=== PATIENT | male | born 1970 | race Caucasian/White ===

== ENCOUNTER 2019-04-09 09:56 | Emergency (ER) | payer OTHER ==
[2019-04-09 10:29] VITALS: BP 129/84
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
[2019-04-09 14:31] LABS: ABS Basophils 0.1 10^3/ul (0-0.2); ABS Lymphocytes 0.9 10^3/ul (1.0-4.8); ABS Monocytes 0.6 10^3/ul (0-0.8); ABS Neutrophils 3.2 10^3/ul (1.5-7.7); Eosinophil % 0.2 %; Hematocrit 49 % (42-52); Hemoglobin 16.7 g/dL (14.0-18.0); Lymphocyte % 17.9 %; Mean Corpuscular HGB Conc 34 g/dL (31-36); Mean Corpuscular Hemoglobin 31 pg (27-31); Mean Corpuscular Volume 89 fL (80-94); Mean Platelet Volume 9.2 fL (7.4-10.4); Nucleated Red Blood Cells % 0.3; Platelet Count 161 10^3/uL (150-450); Red Blood Count 5.44 10^6 /uL (4.18-5.48); Red Cell Distribution Width 14 % (10-15); White Blood Count 4.8 10^3/uL (3.5-10.8)
[2019-04-09 14:41] LABS: Albumin 4.4 g/dL (3.2-5.2); Albumin/Globulin Ratio 1.7 (1-3); BUN/Creatinine Ratio 14.7 (8-20); EGFR African American 94.3 (>60); Globulin 2.6 g/dL (2-4); Potassium 4.4 mmol/L (3.5-5.0); Total Bilirubin 0.8 mg/dL (0.2-1.0)
--- NOTE | 2019-04-10 07:29 | UC ---
- Progress Note Progress Note: Lab results come back from April 08, 2019 with elevated ALT and AST. ALT is elevated 88 AST is elevated at 56. Patient's LFTs have been elevated similar levels in the past. Nursing to call patient inform him of the results. These levels are not exceptionally high however the patient should follow-up with his primary care physician. Course/Dx - Diagnoses Provider Diagnoses: Viral illness Discharge - Sign-Out/Discharge Documenting (check all that apply): Patient Departure All imaging exams completed and their final reports reviewed: No Studies - Discharge Plan Condition: Stable Disposition: HOME Patient Education Materials: Viral Syndrome (ED) Referrals: Missy Valdovinos MD [Primary Care Provider] - 2 Days Additional Instructions: Supportive treatment - Maintain hydration Ibuprofen as needed for fever and body aches. Blood work is done today, somebody will call you with the results are available and are abnormal. Follow up with your primary care doctor in 2 - 3 days Patients blood pressure slightly high(prehypertensive range) in Urgent care today , plan follow up with PCP for better control Return to Urgent care / ER if symptoms get worse. - Billing Disposition and Condition Condition: STABLE Disposition: Home
== END 2019-04-09 11:35 | disposition home or self-care (01) ==
LOC: UCCORT 09:56
DX: B34.9 Viral infection, unspecified (principal); R74.9 Abnormal serum enzyme level, unspecified; Z87.891 Personal history of nicotine dependence
CPT/HCPCS: 36415; 80053; 85025; 86618; 99211; G0463